=== PATIENT | male | born 1970 | race Caucasian/White ===

== ENCOUNTER 2024-12-11 13:51 | Inpatient (IN) | payer OTHER, SELFPAY ==
[2024-12-11 10:07] VITALS: BP 150/115
[2024-12-11 10:33] LABS: % Basophils 0.5 % (0-2); % Eosinophils 0.5 % (0-6); % Immature Granulocytes 0.5 % (0-0.5); % Lymphocytes 19.9 % (20.5-51.1); % Monocytes 7.8 % (1.7-9.3); % Neutrophils 70.8 % (42.2-75.2); Absolute Basophils 0.1 10^3/uL (0-0.2); Absolute Eosinophils 0.1 10^3/uL (0-0.7); Absolute Immature Granulocytes 0.1 10^3/uL (0-0.05); Absolute Lymphocytes 2.6 10^3/uL (1.2-3.4); Absolute Neutrophils 9.1 10^3/uL (1.4-6.5); Hematocrit 44.2 % (39.0-52.0); Hemoglobin 15.4 g/dL (13.0-18.0); Mean Corp Hgb Conc. 34.8 g/dL (33.0-37.0); Mean Corpuscular Hgb 30.4 pg (27.0-31.0); Mean Corpuscular Volume 87.2 fL (80.0-94.0); Mean Platelet Volume 9.2 fL (7.4-10.4); Nucleated Red Blood Cells % 0 % (-); Platelet Count 255 10^3/uL (130-400); Red Blood Cell Count 5.07 10^6/uL (4.70-6.10); Red Cell Dist. Width 12.3 % (11.5-14.5); White Blood Cell Count 12.9 10^3/uL (4.8-10.8)
[2024-12-11 11:00] LABS: ALT (SGPT) 25 U/L (0-50); AST (SGOT) 20 U/L (17-59); Albumin 4.4 g/dl (3.5-5.0); Alkaline Phosphatase 51 U/L (38-126); Blood Urea Nitrogen 20 mg/dl (9-20); Calcium 9.3 mg/dl (8.4-10.2); Carbon Dioxide 25 mmol/L (22-30); Chloride 101 mmol/L (98-107); Glucose 108 mg/dl (70-99); Lipase 492 U/L (23-300); Potassium 4.6 mmol/L (3.5-5.1); Sodium 139 mmol/L (135-145); Total Protein 8.1 g/dl (6.3-8.2); eGFR > 60.00
[2024-12-11] MEDS: NSS 1000 IV (11:02)
[2024-12-11 11:04] VITALS: BMI 27.4
[2024-12-11 13:04] VITALS: BP 133/89
--- NOTE | 2024-12-11 13:27 | ED.GENMED ---
History of Present Illness
General
Chief Complaint: Abdominal Pain
Source: patient
Exam Limitations: none
Time Seen by Provider: 12/11/24 10:43
Nursing documentation reviewed up to this point in time: agreed with
History of Present Illness
History of Present Illness:
Patient presents to ED secondary to persistent lower abdominal pain with decreased appetite over the past 4 days. Denies fever or chills. Abdominal pain described as crampy, nonradiating, without any alleviating or exacerbating factors. Denies
trauma. Denies diarrhea. Denies recent illness. Denies recent travel. Denies difficulty with urination. Denies previous history of similar symptoms. Patient has had multiple colonoscopy in the past, without abnormal findings.
Past History
Past History
ED Past Medical History: None and Other (dDD - cervical)
ED Past Surgical History: Other (cervical fusion)
Patient has exhibited threatening behavior?: No
PSI?: No
Social History
Tobacco: Former smoker (Quit cigarettes April 2012)
Alcohol: None
Drug: None
Personal:
Living: with family
Employment: Employed
Family History
Family History: Negative Diabetes, Hypertension, Early CAD, CAD or Sudden
Review of Systems
Review of Systems
Allergies reviewed?: Yes
All Other Systems: ROS reviewed and negative except as documented in HPI and ROS
Constitutional: Reports no symptoms; Denies fever or chills
EENT: Reports no symptoms
Respiratory: Reports no symptoms
Cardiac: Reports no symptoms
ABD/GI: Reports abdominal pain; Denies nausea, vomiting or diarrhea
Musculoskeletal: Reports no symptoms
Skin: Reports no symptoms
Neurological: Reports no symptoms
Phy Exam
Physical Exam
Physical Exam:
Physical Exam
General: mild distress, not acutely ill. afebrile.
Head: nc/at. eomi
Neck: supple. normal range of motion.
Heart: s1/s2 regular rate and rhythm, no murmur.
Lungs: no acute respiratory distress. clear bilaterally
Abdomen: normal bowel sounds. moderate lower abdominal tenderness to palpation, R>L. no distention
Neuro: alert and oriented. no focal neurological deficits
Skin: no rash
Psychiatric: well kept. interactive and cooperative
Extremities: no edema. no calf tenderness.
Course
Orders/Labs/Results
Orders:
Orders
12/11/24 Breakfast
NPO
Allow oral meds: Yes
Allow clear liquids: Sips of Clears
NPO with Ice Chips: Yes
12/11/24 10:25
Complete Blood Count/With Diff Urgent
Comprehensive Metabolic Panel Urgent
Lipase Urgent
12/11/24 10:54
CT Abd/pelvis W Iv Cont Urgent
Comment:
Reason For Exam: Lower abdominal pain, R>L
0.9% Sodium Chloride 1000 ml [Nss] 1,000 ml IV BOLUS
12/11/24 13:25
LevoFLOXacin 500 MG/100 ML [Levaquin] 500 mg in 100 ml IV NOW
MetroNIDAZOLE 500 MG/100 ML [Flagyl 500 mg] 100 ml IV NOW
12/11/24 13:40
Admit/Transfer Patient As Directed
Co-Sign Provider:
Level of Care: Inpatient admission
Assign to:: Medical/Surgical
Physician / Group: Priscilla
Diagnosis: Diverticulitis
Reason for Hospitalization: IV abx
Expected length of stay greater than two midnights?: Yes
ELOS- Estimated Length of Stay in days: 3
I certify the patient meets the requirements for IP care: Yes
12/11/24 13:41
PRN Pain Medication Management As Directed
May give lesser potent ordered pain med per pt: Yes
preference::
Protocol:: Medication orders for pain may be administered in a
manner that supports deferring to patient preference
when the pt is:
- Requesting an ordered lesser potent pain medication.
Least to most potent pain medications are defined
as: acetaminophen < NSAID < tramadol < opioids
(morphine, oxycodone, hydromorphone).
- Requesting a lesser dose of the same medication IF
ORDERED.
- Requesting a less intrusive route of administration
if both routes are prescribed by the provider (PO <
IV).
12/11/24 13:43
Code Status As Directed
Resuscitation Status: Full Code
12/11/24 14:24
Acetaminophen [Tylenol] 650 mg PO Q4HPRN PRN
Dextrose 5%/0.9%Sodchl 1000 ml [D5/0.9% Sodium Chloride] 1,000 ml IV 50 mls/hr
HYDROmorphone [Dilaudid] 0.25 mg IV Q3HPRN PRN
LevoFLOXacin 500 MG/100 ML [Levaquin] 500 mg in 100 ml IV Q24H
Ondansetron Injectable [Zofran] 4 mg IV Q6HPRN PRN
12/11/24 14:24
ColoRectal Surgery Consult Routine
Consulting Provider: Steven Gallagehr
Was physician already notified: Yes
Activity As Directed
Activity Level: Out of Bed-Early Mobility
With Assistance
Vital Signs As Directed
Frequency: Per unit guidelines
DX Deep Vein Thrombosis Video Routine
12/11/24 18:00
Enoxaparin Sodium [Lovenox] 40 mg SC QPM
12/11/24 22:00
MetroNIDAZOLE 500 MG/100 ML [Flagyl 500 mg] 100 ml IV Q8H
Abnormal Lab Results
12/11/24
10:25
WBC 12.9 H 10^3/uL
(4.8-10.8)
Abs Immat Gran (auto) 0.1 H 10^3/uL
(0-0.05)
Absolute Neuts (auto) 9.1 H 10^3/uL
(1.4-6.5)
Absolute Monos (auto) 1.0 H 10^3/uL
(0.1-0.6)
Lymphocytes % 19.9 L %
(20.5-51.1)
Glucose 108 H mg/dl
(70-99)
Total Bilirubin 2.0 H mg/dl
(0.2-1.3)
Lipase 492 H U/L
(23-300)
12/11/24 10:25
12/11/24 10:25
Vital Signs
Initial and Last Documented VS:
Initial Vital Signs
Temp Pulse Resp BP Pulse Ox
97.5 F 114 18 150/115 99
12/11/24 10:07 12/11/24 10:07 12/11/24 10:07 12/11/24 10:07 12/11/24 10:07
Last Documented Vital Signs
Temp Pulse Resp BP Pulse Ox
97.7 F 76 18 103/69 97
12/12/24 07:00 12/12/24 07:00 12/12/24 07:00 12/12/24 07:00 12/12/24 07:00
MDM/Problems Addressed
MDM/Problems Addressed:
History, exam, and CT scan consistent with symptoms secondary to acute diverticulitis with development of abscess. In light of patient's ongoing symptoms along with leukocytosis, as well as abscess development, patient will be admitted for IV
antibiotics.
On-call colorectal surgery, Dr. Gallagher, notified via [facility] text.
*Critical Care Note
Total Time (30-74mins, 75-104mins- exclusive of procedures): Not Applicable
ED Attending Note
-
Portions of this chart may have been created with voice recognition software.� Occasional wrong word or��sound alike� substitutions may have occurred due to the inherent limitations of voice recognition software.
Discharge Plan
Departure
Patient Disposition: Admit
Date of Disposition: 12/11/24
Time of Disposition: 13:31
Presentation/result/management discussed w/ accepting MD/DO: Hospitalist
Discharge Problem:
Colonic diverticular abscess
Interventions
Interventions:
*Risk Screen - Suicide Last Done: 12/11/24 10:07
*General Assessment Last Done: 12/11/24 10:07
*Neglect/Abuse Screening Last Done: 12/11/24 10:07
*ED- Fall Risk Assessment Last Done: 12/11/24 10:44
*ED COVID-19 Vaccine History Last Done: 12/11/24 10:07
*Nursing Disposition Last Done: 12/11/24 14:18
MG-Yxizfb-Fwqbfvwylb Assessment Last Done: 12/11/24 10:44
Discharge Date and Time
Discharge Date/Time: 12/11/24 14:19
[2024-12-11] MEDS: FLAGYL 500 MG 100 IV ×2 (13:30→21:30)
--- NOTE | 2024-12-11 13:48 | HPS.HSE ---
Family Physician
-
Family Physician: * NONE
Chief Complaint
-
Abdominal Pain
History of Present Illness
Patient is 54 y/o male without significant past medical history who presents with abdominal pain. Patient reports lower abdominal pain started about 4 days ago. He admits to associated constipation for which he tried MiraLAX without results. He
reports abdominal bloating. He denies fevers, sweats or chills. He reports multiple colonoscopies in the past due to multiple polyps. Last colonoscopy in 2019 did reveal diverticulosis. Patient denies any prior episodes of diverticulitis.
Medical History
Past Medical History
Past Medical History: Reports None
Past Surgical History: Reports Other
Additional Past Surgical History:
Cervical Spine Surgery
Social History
Tobacco: Former Smoker
Alcohol: Occasional (Once every few weeks)
Family History
Family History: Not pertinent
Allergies / Home Medications
Allergies reflects when Allergies were last updated in [facility].
Home Medications with original date entered in [facility]
Allergy/Medication List:
Allergies
Allergy/AdvReac Type Severity Reaction Status Date / Time
amoxicillin [Amoxicillin] Allergy Unknown fever, rash Verified 12/11/24 10:10
Penicillins Allergy Unknown fever, rash Verified 12/11/24 10:10
Review of Systems
-
A 12 point ROS was completed and negative except as noted: Yes
Constitutional: Denies Fever
Respiratory: Denies Cough
Cardiac: Denies Chest Pain or Palpitations
Abdomen/GI: Reports See HPI
Physical Exam
Vital Signs
Vital Signs
Temp Pulse Resp BP Pulse Ox
97.5 F 72 16 133/89 99
12/11/24 10:07 12/11/24 13:04 12/11/24 13:04 12/11/24 13:04 12/11/24 13:04
Physical Exam
General: Comfortable and Conversant
HEENT: Anicteric and Moist mucous membranes
Respiratory: Clear and Non Labored Respirations
Cardiac: S1/S2 and Regular Rhythm
GI: Soft and Tender (LLQ / Suprapubic region with some voluntary guarding)
Rectal: Deferred by Provider
Musculoskeletal: No Clubbing, No Cyanosis and No Edema
Skin: Warm and Dry
Neuro: Awake, Alert, Oriented and Nonfocal/grossly intact
Psych: Calm
Laboratory Results
-
12/11/24 10:25
12/11/24 10:25
Laboratory Results
Total Bilirubin 2.0 mg/dl (0.2-1.3) H 12/11/24 10:25
AST 20 U/L (17-59) 12/11/24 10:25
ALT 25 U/L (0-50) 12/11/24 10:25
Alkaline Phosphatase 51 U/L (38-126) 12/11/24 10:25
Lipase 492 U/L (23-300) H 12/11/24 10:25
Abd/Pelvis CT Scan:
Diverticulosis of the sigmoid colon with accompanying short segment distal sigmoid colon wall thickening and surrounding stranding suspicious for ACUTE DIVERTICULITIS with likely accompanying small abnormal focal fluid collection/abscess, as
detailed above. No free air.
Data Reviewed
-
CT Scan: Report Reviewed by me
Lab Data: Labs Reviewed by me
Impression/Plan
-
Diverticulitis with Abscess
-Consult Colorectal Surgery
-Continue Levaquin and Flagyl
-Continue NPO / IVFs
Elevated Bilirubin
-CT scan with evidence of cholelithiasis, but no bile duct dilation
-Recheck Bilirubin in AM
-Consider Abd US
DVT proph: Lovenox
Code Status: Full Code
--- NOTE | 2024-12-11 13:49 | CON.CRS ---
Consultation
-
Date/Time Consultation Requested: 12/11/2024, 13:40
Date/Time Consultation Performed: 12/11/2024, 14:40
Requesting Provider: Lorena Day PA-C
Performing Provider: Steven Gallagher MD
Reason for Consultation: diverticulitis
Medical History
-
Chief Complaint: abdominal pain
History of Present Illness:
54-year-old male presents to the [facility] ER complaining of lower abdominal pain with decreased appetite over the past 4 days. The pain is crampy in nature and at first he thought he was severely constipated. He developed some chills at
night and after the pain did not relent, he came to the ER. He has no issues with urination. His last bowel movement was about 4 days ago. He is usually regular. Denies any bleeding. His last colonoscopy was in [address] Allen. There was two 2
to 3 mm polyps in the descending colon, two 1 to 2 mm polyps in the rectum, and diverticulosis in the sigmoid colon and descending colon. He is due again in February 2025. His paternal grandfather has a history of colon cancer. His father has colonic
polyps since the age of 30. The patient has had polyps in the past and gets colonoscopies every 3 to 5 years. Denies a previous history of abdominal surgery. He has never had diverticulitis before.
In the ER his vitals remained normal. His WBC is 12.9. CT of the abdomen and pelvis shows diverticulosis of the sigmoid colon with accompanying short segment distal sigmoid colon wall thickening and surrounding stranding suspicious for acute
diverticulitis with small abnormal fluid collection/abscess. No free air. He has been started on IV antibiotics while in the ER. Given these findings, we been consulted for further surgical opinion.
Past Medical History
Past Medical History: Other (Cervical disc disease)
Past Surgical History: Other (Cervical fusion)
Social History
Tobacco: Former Smoker
Alcohol: None
Drug: None
Family History
Family History: Reviewed & Not Pertinent
Allergies / Home Medications
Allergy/AdvReac Type Severity Reaction Status Date / Time
amoxicillin [Amoxicillin] Allergy Unknown fever, rash Verified 12/11/24 10:10
Penicillins Allergy Unknown fever, rash Verified 12/11/24 10:10
Review of Systems
-
History Source: Patient
Abdomen/GI: Abdominal Pain
A 10 point review of systems was completed, and was negative except as per HPI.
Physical Exam
Vital Signs
Temp 97.5 F 12/11/24 10:07
Pulse 72 12/11/24 13:04
Resp Rate 16 12/11/24 13:04
Blood pressure 133/89 12/11/24 13:04
SaO2 99 12/11/24 13:04
12/10/24 12/11/24 12/12/24
06:59 06:59 06:59
Actual Weight 96.6 kg
Body Mass Index (BMI) 27.4
Lab Results / Allergies
12/11/24 10:25
12/11/24 10:25
WBC 12.9 10^3/uL (4.8-10.8) H 12/11/24 10:25
Hgb 15.4 g/dL (13.0-18.0) 12/11/24 10:25
Hct 44.2 % (39.0-52.0) 12/11/24 10:25
Plt Count 255 10^3/uL (130-400) 12/11/24 10:25
Abs Immat Gran (auto) 0.1 10^3/uL (0-0.05) H 12/11/24 10:25
Neutrophils % 70.8 % (42.2-75.2) 12/11/24 10:25
Allergy/AdvReac Type Severity Reaction Status Date / Time
amoxicillin [Amoxicillin] Allergy Unknown fever, rash Verified 12/11/24 10:10
Penicillins Allergy Unknown fever, rash Verified 12/11/24 10:10
Physical Exam
General: Well Developed, Well Nourished and No Apparent Distress
GI: Soft, Non Distended and Tender (LLQ moderate)
Skin: Warm and Dry
Neuro: AO x 3
Data Reviewed
-
CT Scan: Image Personally Visualized and interpreted, Report Reviewed by me and Discussed with Patient
Labs: Labs Reviewed by me, Discussed with Physician and Discussed with Patient
Old Records: Reviewed
Assessment / Plan
-
Assessment: 54-year-old male presents to [facility] ER with lower abdominal pain and decreased appetite, found to have likely sigmoid diverticulitis with a questionable fluid collection/abscess on CT scan
Plan:
- N.p.o. with IV fluids
- Continue IV antibiotics
- Trend labs
- No plans for urgent surgery at this time. If he worsens he will require a colectomy with colostomy creation.
- Will follow.
[2024-12-11 14:25] VITALS: BP 147/88
[2024-12-11 14:28] VITALS: BMI 27.1
[2024-12-11] MEDS: LEVAQUIN 100 IV (14:41)
[2024-12-11] MEDS: D5/0.9% SODIUM CHLORIDE 1000 IV ×2 (14:47→21:30)
--- NOTE | 2024-12-11 16:52 | W.PN.UPDATE ---
Update Note
Progress Note Update
This is an addendum to the H&P written by Lorena Cat on 12/11/2024.� Patient seen examined independently with PA.
54-year-old male without past medical history presenting with lower abdominal pain with constipation.� No fever.
Labs show leukocytosis.� CT abdomen pelvis shows diverticulosis of the sigmoid colon with short segment distal sigmoid colon wall thickening suspicious for acute diverticulitis with likely accompanying small abnormal abscess.
N.p.o., IV fluids, Levaquin/Flagyl, colorectal surgery consulted.�
[2024-12-11 23:21] VITALS: BP 124/83
[2024-12-12] MEDS: FLAGYL 500 MG 100 IV ×2 (04:37→15:20)
[2024-12-12] MEDS: TYLENOL 650 MG PO (04:37)
[2024-12-12 07:00] VITALS: BP 103/69
[2024-12-12 07:49] LABS: % Basophils 0.6 % (0-2); % Eosinophils 0.9 % (0-6); % Immature Granulocytes 0.3 % (0-0.5); % Lymphocytes 15.2 % (20.5-51.1); % Monocytes 6.3 % (1.7-9.3); % Neutrophils 76.7 % (42.2-75.2); Absolute Basophils 0.1 10^3/uL (0-0.2); Absolute Eosinophils 0.1 10^3/uL (0-0.7); Absolute Lymphocytes 1.3 10^3/uL (1.2-3.4); Absolute Monocytes 0.6 10^3/uL (0.1-0.6); Absolute Neutrophils 6.7 10^3/uL (1.4-6.5); Hematocrit 36.9 % (39.0-52.0); Hemoglobin 13.1 g/dL (13.0-18.0); Mean Corp Hgb Conc. 35.5 g/dL (33.0-37.0); Mean Corpuscular Hgb 31.2 pg (27.0-31.0); Mean Corpuscular Volume 87.9 fL (80.0-94.0); Mean Platelet Volume 9.5 fL (7.4-10.4); Nucleated Red Blood Cells % 0 % (-); Platelet Count 235 10^3/uL (130-400); White Blood Cell Count 8.7 10^3/uL (4.8-10.8)
[2024-12-12] MEDS: D5/0.9% SODIUM CHLORIDE 1000 IV (08:12)
[2024-12-12 08:16] LABS: ALT (SGPT) 21 U/L (0-50); AST (SGOT) 17 U/L (17-59); Albumin 3.9 g/dl (3.5-5.0); Alkaline Phosphatase 44 U/L (38-126); Blood Urea Nitrogen 10 mg/dl (9-20); Calcium 8.5 mg/dl (8.4-10.2); Carbon Dioxide 25 mmol/L (22-30); Chloride 105 mmol/L (98-107); Direct Bilirubin 0.4 mg/dl (0.0-0.4); Estimated Creatinine Clearance > 125 ml/min; Glucose 124 mg/dl (70-99); Potassium 4.5 mmol/L (3.5-5.1); Sodium 140 mmol/L (135-145); Total Bilirubin 1.3 mg/dl (0.2-1.3); Total Protein 6.8 g/dl (6.3-8.2); eGFR > 60.00
--- NOTE | 2024-12-12 11:06 | W.PN.CRS1 ---
Today's Communication / Plan
-
low residue diet
ok d/c from our perspective if tolerates
Assessment/Plan
-
Assessment: 54-year-old male presents to [facility] ER with lower abdominal pain and decreased appetite, found to have likely sigmoid diverticulitis with a questionable fluid collection/abscess on CT scan
Plan:
- Advance to low residue diet
- Continue IV antibiotics, convert to po as an outpatient
- Trend labs
- No plans for urgent surgery at this time.
- OKay for discharge from our perspective. Follow up with Dr. Gallagher in the office in a few weeks.
Subjective Data
Subjective Data
Date of Service: December 12, 2024
Patient states he feels much improved today. He has no nausea or vomiting. He had some bowel movements. His only complaint is that he did not sleep well.
Objective Data
-
Vital Signs
Temp Pulse Resp BP Pulse Ox
97.7 F 76 18 103/69 97
12/12/24 07:00 12/12/24 07:00 12/12/24 07:00 12/12/24 07:00 12/12/24 07:00
Intake & Output
12/11/24 12/12/24 12/13/24
06:59 06:59 06:59
Intake Total 440 / 440
Balance 440 / 440
Intake:
Oral fluids 240 / 240
IV fluids (Total) 200 / 200
Other:
Number of approximated MODERATE 3
amounts of urine
Lab Results
12/12/24 07:16
12/12/24 07:16
Physical Exam
-
General: No Acute Distress and AOx3
Abdomen: Soft, Non Distended and Tender (very mild LLQ)
Skin: Warm and Dry
--- NOTE | 2024-12-12 13:20 | W.PN.HOSP.TC ---
Addendum entered and electronically signed by Froilan Key MD 12/12/24 16:27:
Seen and examined by me independently in collaboration with the medical reviewer.
Lab data and imaging data reviewed.
Addendum as below :
Patient presents with acute sigmoid diverticulitis with likely accompanying small abnormal focal fluid collection/abscess. Not septic. Patient was evaluated by surgery who felt medical management for now and no indication for surgery or drainage.
His abdomen is soft with mild discomfort in the left lower quadrant without rebound or guarding rigidity. Afebrile. White count normalized.
Diet already been advanced to by surgery which he is tolerating. No reservation from surgery for discharge.
Medically Hospital stable for discharge.
Patient advised if there is any worsening of abdominal pain or fevers to return back to ER.
Patient has a history of colonic polyps and is under active surveillance by GI since the age of 42 because of family history. He is due for a colonoscopy and apparently he got a call from GI office to schedule I. Advised to schedule 6-8 weeks
after current antibiotics treatment for his diverticulitis.
Total time of discharge 32 minutes
Original Note:
Today's Communication/Plan
-
Convert to PO abx. Okay to discharge if tolerate low res diet
Assessment / Plan
Assessment / Plan
54 year old male with no
Diverticulitis with Abscess
Hx of multiple colonoscopies for family history of early colon cancer and multiple polyps.
-Continue Levaquin and Flagyl, convert to PO and complete 14 days of abx coverage.
-Continue tolerated clear liquid diet, advanced to low residue diet.
-appreciate CR surgery recs. No plans for urgent surgery at this time. Okay to go home if tolerating diet. Follow up with CR outpatient
Elevated Bilirubin
-CT scan with evidence of cholelithiasis, but no bile duct dilation
-normal on recheck
DVT proph: Lovenox
Code Status: Full Code
Anticipated Discharge: Today
Subjective/Interval History
-
Date of Service: December 12, 2024
Tolerated clear liquid diet
Pain is improved. Afebrile
Objective Data
-
Labs:
Laboratory Results
12/12/24 12/12/24
06:44 07:16
WBC 8.7
Hgb 13.1
Hct 36.9 L
Plt Count 235
Sodium 140
Potassium 4.5
Chloride 105
Carbon Dioxide 25
BUN 10
Creatinine 0.7
Glucose 124 H
Calcium 8.5
Total Bilirubin Cancelled 1.3
AST Cancelled 17
ALT Cancelled 21
Alkaline Phosphatase Cancelled 44
Vital Signs:
Vital Signs
Temp Pulse Resp BP Pulse Ox
97.7 F 76 18 103/69 97
12/12/24 07:00 12/12/24 07:00 12/12/24 07:00 12/12/24 07:00 12/12/24 07:00
I&O
12/11/24 12/12/24 12/13/24
06:59 06:59 06:59
Intake Total 440 / 440
Balance 440 / 440
Review of Systems
-
History Source: Patient
Constitutional: Denies Fever or No Appetite
Respiratory: Denies Trouble Breathing
Cardiac: Denies Chest Pain
Abdomen/GI: Reports Abdominal Pain (LLQ, /) and Other (loose stool); Denies Nausea, Vomiting, Constipated, Bloody Stools or Black Stools
Genitourinary: Denies Dysuria, Difficulty Voiding or Bleeding
Physical Exam
-
General: Well Developed, Well Nourished, No Apparent Distress and Comfortable
HEENT: Normocephalic, Atraumatic, Moist Mucous Membranes and Anicteric
Respiratory: Clear to Auscultation and Non Labored Respirations; Negative Wheezes, Rales, Rhonchi or Crackles
Cardiac: Regular Rhythm and S1/S2; Negative Murmur, Rub or Calf Tenderness
GI: Soft, Nontender, Nondistended and Normal Bowel Sounds
Musculoskeletal: No Clubbing, No Cyanosis and No Edema
Skin: Warm and Dry
Neuro: Awake, Alert and Oriented
Psych: Calm
[2024-12-12] MEDS: LEVAQUIN 100 IV (13:28)
--- NOTE | 2024-12-12 14:00 | PTCARENOTE ---
1400 Pt tolerated low residue diet, no c/o discomfort. MD aware. Explain to pt able to be discharge to home today.
[2024-12-12 15:00] VITALS: BP 124/86
--- NOTE | 2024-12-12 15:22 | CM ---
rn field case manager reviewed patient's chart and met with patient and patients with is daughter in a 2 story home, patient is independent with adls and ambulation, no dme, patient drives, per patient he does not have insurance. Plan is to home when stable,
no needs.
NO PCP
Pharmacy: [facility] in [place]
--- NOTE | 2024-12-12 15:47 | W.DCSUMMARY ---
Discharge Summary
Discharge Data
Date of Admission: 12/11/24
Date of Discharge: 12/12/24
-
Pending Results: No
Hospital Course
Discharging Physician : Bárbara Guillaume MD., Froilan Key MD.
Disposition : Home
Principal Discharge diagnosis : Sigmoid diverticulitis, abscess
Chronic Discharge diagnosis : Benign colonic polyps
Hospital Course :
54 year old male with history of benign colonic polyps presented with LLQ abdominal pain. On arrival to the ED, vitals were stable, CBC significant for elevated leukocytes 12.9, chemistries unremarkable. CT abd/pel showed acute diverticulitis with
suspected abscess. IV antibiotic therapy including Levofloxacin and metronidazole was started. EKG showed normal QTc. Colorectal surgery assessment followed, with recommendations against immediate surgical intervention, and to continue with
antibiotic therapy.
Pt remained afebrile and WBC normalized. He tolerated low residue diet and was deemed stable for discharge on oral Levofloxacin 500mg daily, and Metronidazole 500mg TID through 12/24/2024. Close follow up with PCP with repeat EKG recommended. He is
to follow up with colorectal surgeon, Dr. Steven Gallagher in 2 to 4 weeks.
Important imaging findings :
Abdomen/pelvis CT 12/11/2024:
CHEST:The included lung bases contain some minor dependent subsegmental atelectasis.
ABDOMEN:The appendix is unremarkable. There is no focal intrinsic abnormality of the liver, spleen, pancreas, adrenal glands or kidneys with symmetric renal excretion. The abdominal aorta is normal in caliber. There is no retroperitoneal
lymphadenopathy. Evaluation of the intestinal tract is limited without intravenous or oral contrast, without intestinal obstruction or free air. At least one gallstone is seen within the gallbladder. There are no findings to suggest biliary tract
dilatation.
PELVIS:Limited without oral contrast, there is diverticulosis of the sigmoid colon with some wall thickening and surrounding stranding. There is also suggestion of a small extraluminal abnormal fluid collection just caudal to the distal descending
colon, images 79 series 201 and coronal reformatted image 35 measuring approximately 3 x 1.5 x 1.5 cm containing a bubble of air. The urinary bladder demonstrates no focal intrinsic abnormality.
SKELETON:Degenerative changes are seen within the lumbar spine.
Discharge Plan
-
Patient Disposition: Home (Routine Discharge)
Discharge Diagnosis/Procedures: Acute sigmoid diverticulitis, abscess
Condition: Fair
Diet: Low Residue
Activity: No restrictions
Driving Restrictions: As prior to admission
Bathing Restrictions: None
Instructions: Diverticulitis - Discharge instructions, Low-fiber diet
Referrals:
NONE,* [Family Provider] - in less than 1 week
Steven Gallagher MD [Active] - in two to four weeks
Additional Discharge Medication Instructions: Be sure to follow up with your PCP in a few days. Recheck EKG for QTC monitoring early next week by your PCP
Prescriptions:
New
levofloxacin 500 mg tablet
500 mg PO DAILY Qty: 12 0RF
Rx Instructions:
Start on 12/13/2024
metronidazole 500 mg tablet
500 mg PO TID Qty: 37 0RF
Rx Instructions:
Start 12/12/2024
Discharge Orders:
Discharge Patient (As Directed); Ordered 12/12/24
Ordered By: Bárbara Guillaume
Discharge Date and Time
Print Language: BELIZEAN
== END 2024-12-12 17:17 | disposition home or self-care (01) | DRG 392 ==
LOC: 4 WEST ACU 13:51
PROVIDERS: Student in an Organized Health Care Education/Training Program; ADMITTING PHYSICIAN Hospitalist; ATTENDING PHYSICIAN Internal Medicine; CONSULT PHYSICIAN Surgery; EMERGENCY PHYSICIAN Emergency Medicine
DX: K57.20 Diverticulitis of large intestine with perforation and abscess without bleeding (principal); Z87.891 Personal history of nicotine dependence; K63.5 Polyp of colon; Z83.719 Family history of colon polyps, unspecified; Z86.0100 Personal history of colon polyps, unspecified
CPT/HCPCS: 74177; 80053; 82248; 83690; 85025; 93005; 96361; 96374; 99285; Q9967

== ENCOUNTER 2025-04-30 06:22 | Day surgery (SDC) | payer OTHER, SELFPAY | END 2025-04-30 12:34 | disposition home or self-care (01) | LOC: GI 06:22 | PROVIDERS: ATTENDING PHYSICIAN Internal Medicine Gastroenterology | DX: Z12.11 Encounter for screening for malignant neoplasm of colon (principal); K63.5 Polyp of colon; K57.30 Diverticulosis of large intestine without perforation or abscess without bleeding; K64.8 Other hemorrhoids; Z86.0100 Personal history of colon polyps, unspecified | CPT/HCPCS: 45385; 88305 ==